=== PATIENT | male | born 1960 | race Caucasian/White ===

== ENCOUNTER → 2017-02-17 | Outpatient (CLI) | payer BC ==
--- NOTE | 2017-02-18 09:02 | CR ---
EXAMINATION: Right elbow HISTORY: Strain COMPARISON: None TECHNIQUE: 3 views FINDINGS/IMPRESSION: No acute osseous abnormality, dislocation, or fracture identified. Mild subchon dral cystic change noted within the medial joint space. There is no joint effusion or soft tissue sw elling. There is a small triceps insertion enthesophyte.
== END ==
LOC: MW.CHFP 11:59
PROVIDERS: ATTEND Student in an Organized Health Care Education/Training Program
DX: S46.211A Strain of muscle, fascia and tendon of other parts of biceps, right arm, initial encounter (principal)
CPT/HCPCS: 73080-26-RT; 73080-RT

== ENCOUNTER → 2017-02-18 | Outpatient (CLI) | payer BC ==
--- NOTE | 2017-02-19 15:43 | MR ---
EXAM DATE: 02/18/17 PATIENT'S AGE: 57 Patient: SABINE DE LA PAZ Facility: [place], [place] Site . Site : [id number] Study: MRI Extremity Right [id number]/[id number] 6:57:11 PM Ordering Physician: Lida Hector Final Report: HISTORY: Strain of muscle, fascia, and tendon. Biceps injury. Technique: MRI right elbow without contrast. Comparison: None. Findings: Tendons: Complete tear of the biceps tendon from the attachment on the radial tuberosity. Tendon is retracted into the distal upper arm, 8.5 cm from the radial tuberosity. Ill-defined fluid surrounding the retracted distal biceps tendon extending across antecubital fossa to the radial tuberosity. Distal brachialis and triceps tendons are intact. Mild common extensor tendinosis. Common flexor tendon is intact. Ligaments: Ulnar collateral ligament is intact. Radial collateral ligament complex is intact. Joint space: Focal full-thickness cartilage defect in the medial capitellum near the trochlea with small subchondral cyst. No other focal cartilage defects. No joint effusion. Bones: No fracture. No marrow replacing process. Nerves: Ulnar nerve is normal in caliber and signal intensity. No ulnar or subluxation. Median and radial nerves are unremarkable. Other: Subcutaneous edema of the medial aspect of the elbow. Impression: 1. Complete tear of the distal biceps tendon from the radial tuberosity. 8.5 cm tendon retraction. 2. Common extensor tendinosis. 3. Focal full-thickness capitellar cartilage defect. Dictated by Denis Oseguera MD @ Feb 19 2017 10:39AM (Electronic Signature) Report Signed by Proxy. [facility]
== END ==
LOC: MW.MRI 16:58
PROVIDERS: ATTEND Student in an Organized Health Care Education/Training Program
DX: S46.211A Strain of muscle, fascia and tendon of other parts of biceps, right arm, initial encounter (principal); M94.8X9 Other specified disorders of cartilage, unspecified sites
CPT/HCPCS: 73221-26-RT; 73221-RT

== ENCOUNTER 2017-02-24 10:34 | Day surgery (SDC) | payer BC ==
[~2017-02-24 10:34] MED LIST: Clindamycin Phosphate in D5W 900 MG in Premix Bag 1 BAG IV SCH; Lactated Ringers 1,000 ML IV SCH; Lidocaine 1% 50 ML MDV ONE; Midazolam 1 MG/ML 2 ML SDV ONE; Ondansetron 4 MG/2 ML SDV ONE; Propofol 200 MG/20 ML SDV ONE; fentaNYL 250 MCG/5 ML SDV ONE
--- NOTE | 2017-02-24 11:18 | PCM.OPNOTE ---
- General Post-Op/Procedure Note Date of Surgery/Procedure: 02/24/17 Operative Procedure(s): R distal biceps tendon repair Post-Op Diagnosis: R distal biceps tendon rupture Anesthesia Technique: General ET tube Primary Surgeon: Winsome Hilton Fur Comber: Aleida Ruffin in mLs: 10 Condition: Good Free Text/Narrative:: tt=0 min #[id number]
--- NOTE | 2017-02-24 11:24 | PCM.PREANE ---
Preanesthetic Assessment - Anesthesia/Transfusion/Family Hx Anesthesia History: Prior Anesthesia Without Reaction Family History of Anesthesia Reaction: No Transfusion History: No Prior Transfusion(s) - Review of Systems General: No Symptoms Pulmonary: No Symptoms Cardiovascular: No Symptoms Gastrointestinal: No symptoms Neurological: No Symptoms Other: Reports: None - Physical Assessment NPO Status Date: 02/23/17 Height: 1.78 m Weight: 99.79 kg ASA Class: 1 Mental Status: Alert & Oriented x3 Airway Class: Mallampati = 2 Dentition: Reports: Normal Dentition Lungs: Clear to auscultation, Normal respiratory effort Cardiovascular: Regular Rate, Regular Rhythm - Allergies Allergies/Adverse Reactions: Allergies Allergy/AdvReac Type Severity Reaction Status Date / Time cephalexin Allergy Rash Verified 02/23/17 10:27 Penicillins Allergy Redness Verified 02/23/17 10:27 - Blood Blood Available: No - Anesthesia Plan Pre-Op Medication Ordered: None - Acknowledgements Anesthesia Type Planned: General Anesthesia Pt an Appropriate Candidate for the Planned Anesthesia: Yes Alternatives and Risks of Anesthesia Discussed w Pt/Guardian: Yes Pt/Guardian Understands and Agrees with Anesthesia Plan: Yes Additional Comments: Receding chin, airway otherwise OK, Plan GE/ETT or LMA PreAnesthesia Questionnaire HEENT History: Reports: None Cardiovascular History: Reports: None Respiratory History: Reports: None Gastrointestinal History: Reports: GERD Genitourinary History: Reports: None Musculoskeletal History: Reports: None Neurological History: Reports: None Psychiatric History: Reports: None Endocrine/Metabolic History: Reports: Obesity/BMI 30+ Hematologic History: Reports: None Immunologic History: Reports: None Oncologic (Cancer) History: Reports: None Dermatologic History: Reports: None - Past Surgical History Head Surgeries/Procedures: Reports: None HEENT Surgical History: Reports: None Cardiovascular Surgical History: Reports: None Respiratory Surgical History: Reports: None GI Surgical History: Reports: None Male Surgical History: Reports: None Endocrine Surgical History: Reports: None Neurological Surgical History: Reports: Discectomy Musculoskeletal Surgical History: Reports: None Oncologic Surgical History: Reports: None Dermatological Surgical History: Reports: None - SUBSTANCE USE Smoking Status *Q: Former Smoker Recreational Drug Use History: No - HOME MEDS Home Medications: Home Meds . [No Known Home Meds] 02/23/17 [History] - CURRENT (IN HOUSE) MEDS Current Meds: Current Medications Clindamycin Phosphate 900 mg/ (Premix) 50 mls @ 100 mls/hr IV ONCALL BRINDA Lactated Ringer's (Ringers, Lactated) 1,000 mls @ 100 mls/hr IV ASDIRECTED BRINDA Discontinued Medications Fentanyl (Sublimaze) Confirm Administered Dose 250 mcg .ROUTE .STK-MED ONE Stop: 02/24/17 09:49 Lidocaine HCl (Xylocaine 1%) Confirm Administered Dose 50 ml .ROUTE .STK-MED ONE Stop: 02/24/17 07:46 Midazolam HCl (Versed 1 Mg/Ml) Confirm Administered Dose 2 mg .ROUTE .STK-MED ONE Stop: 02/24/17 09:49 Ondansetron HCl (Zofran) Confirm Administered Dose 4 mg .ROUTE .STK-MED ONE Stop: 02/24/17 09:49 Propofol (Diprivan 20 Ml) Confirm Administered Dose 200 mg .ROUTE .STK-MED ONE Stop: 02/24/17 09:49
[2017-02-24] MEDS ORDERED: Dexamethasone 4 MG/ML 5 ML MDV ONE (11:50)
[2017-02-24] MEDS ORDERED: Ketorolac 30 MG/ML SDV ONE (11:50)
[2017-02-24] MEDS ORDERED: ePHEDrine 50 MG/ML SDV ONE (12:01)
[2017-02-24] MEDS ORDERED: traMADol 50 MG Tab PO PRN ×2 (14:49→15:06)
--- NOTE | 2017-02-24 14:49 | PCM.POSTAN ---
POST ANESTHESIA ASSESSMENT - RESPIRATORY Respiratory Status: respiratory rate WNL, airway patent, O2 saturation stable - CARDIOVASCULAR CV Status: pulse rate WNL, blood pressure stable - GASTROINTESTINAL GI Status: no symptoms - PAIN Pain Score: 5 - POST OP HYDRATION Hydration Status: adequate & stable
[2017-02-24] MEDS: fentaNYL 100 MCG/2 ML SDV IVPUSH PRN ×2 (15:40→16:30)
--- NOTE | 2017-02-24 15:58 | PCM48HPAN ---
Post Anesthesia Note - EVALUATION WITHIN 48HRS OF ANESTHETIC Vital Signs in Normal Range: Yes Patient Participated in Evaluation: Yes Respiratory Function Stable: Yes Airway Patent: Yes Cardiovascular Function Stable: Yes Hydration Status Stable: Yes Pain Control Satisfactory: Yes Nausea and Vomiting Control Satisfactory: Yes Mental Status Recovered: Yes
--- NOTE | 2017-02-24 16:44 | CR ---
EXAMINATION: Right elbow HISTORY: Surgery COMPARISON: MRI dated 02/18/2017 TECHNIQUE: Single view FINDINGS/IMPRESSION: Operative control films demonstrate an anchor noted at the radial tuberosity.
[2017-02-24] MEDS ORDERED: oxyCODONE 5 MG Tab PO ONE ×2 (17:00→17:15)
[2017-02-24] MEDS ORDERED: HYDROmorphone 1 MG/ML Syringe IM ONE (17:15)
--- NOTE | 2017-02-24 20:05 | OR ---
SURGEON: Winsome Hilton MD DATE OF PROCEDURE: 02/24/2017 PREOPERATIVE DIAGNOSIS: Right distal biceps tendon rupture. POSTOPERATIVE DIAGNOSIS: Right distal biceps tendon rupture. PROCEDURE: Open repair of right distal biceps tendon. LUMBER PRESS OPERATOR: Aleida Ruffin PA-C. ANESTHESIA: General. ESTIMATED BLOOD LOSS: 10 mL. TOURNIQUET TIME: 0 minutes. COMPLICATIONS: None. DVT PROPHYLAXIS: Not indicated. IMPLANTS USED: Arthrex biceps button and an Arthrex 7 mm x 10 mm PEEK tenodesis screw. BRIEF HISTORY: Chong is a 57-year-old, left-hand dominant male, who injured his right upper extremity while trimming a tree. He complained of pain and deformity in the right upper extremity. An MRI did confirm a rupture of the right distal biceps tendon. At that time, I discussed both surgical and conservative treatment options. He elected to proceed with surgical treatment. The risks and goals of procedure were discussed with the patient and were documented preoperatively. He agreed to proceed. DESCRIPTION OF PROCEDURE: The patient was properly identified and brought to the operating room. He was transferred from the OR cart and placed on the operating table in supine position. General anesthesia was administered. After adequate anesthesia was obtained, the right upper extremity was prepped in standard fashion using ChloraPrep solution. It was then sterilely draped. A time-out was performed to ensure correct site and procedure. Preoperative antibiotics were given. The surgical site had been marked preoperatively. An incision was made approximately 3 cm distal to the elbow flexion crease. I did look for the lateral antebrachial cutaneous nerve, however, was not encountered. The subcutaneous tissues were dissected down and the tract of the biceps tendon was identified. I was able to reach up into the upper arm, however, was not able to make contact with the end of the distal biceps tendon. I was able to palpated underneath the skin. I elected to proceed with an additional incision. A small incision was made over the anterior aspect of the upper arm, where the biceps tendon was palpated. The subcutaneous tissues were dissected down and the biceps tendon was readily identified. A long tonsil was then passed safely using my finger as protection through the tunnel. The sutures were placed on the end of the distal biceps tendon and this was pulled back through the biceps tendon tract. The ends of the biceps did not show significant fraying in the tendon, overall quality of the tendon appeared quite good. The end of the tendon was then trimmed to a 7 mm diameter. The distal end of the biceps tendon was then whipstitched approximately 2.5 cm using a fiber loop suture. The tendon was then allowed to retract into the upper arm. I then turned my attention to the forearm. The subcutaneous tissues were dissected down. C-arm imaging did help with identifying the level of the biceps tuberosity. Once this was identified, the soft tissue overlying it was cleared. Care was taken to keep the elbow in full extension with full supination to help identify the biceps tuberosity and help protect the PIN nerve. Once we were able to confirm the biceps tuberosity center, I did drill a 3.2 mm bicortical tunnel through the radial tuberosity. I did ream approximately 30 degrees ulnar to again help protect the PIN nerve. Fluoroscopy was used to confirm drill placement. I then drilled an 8 mm unicortical tunnel over the 3.2 mm guide pin. Both the pin and reamer were then removed. The wound was copiously irrigated with saline solution to remove the bone dust and fragments. The end of the suture which was through the biceps tendon was then threaded through the biceps button. Attention was then placed on the suture limbs and the tip of the biceps button was inserted into the previously made hole. Tension was maintained on the sutures and the forearm was flexed approximately 30 degrees. The biceps button did deploy on the outer cortex and the biceps tendon was able to easily be docked into the previously made hole. Once the tendon was fully seated, a free needle was used to pass one limb through the tendon and a knot was tied. The tenodesis screw was then placed on the salesperson driver and one suture limb was threaded through the salesperson driver. Tension was again maintained on the graft as the tenodesis screw was inserted. The screw was inserted on the radial aspect of the bone tunnel which pushed the tendon in a more ulnar trajectory. This screw was seated flush with the anterior cortex. The suture limbs were then tied over the screw to complete the repair. The patient was then taken through a full range of motion. I am able to get him to nearly full extension with full pronation and supination. He did have full flexion as well. The wound was then copiously irrigated with saline solution. The subcutaneous tissues were closed with 2-0 Vicryl and the skin was closed with a running 4-0 Monocryl suture. Steri-Strips and Benzoin were placed. Xeroform gauze was placed over the wound and a bulky dressing was applied. He was placed in a well-padded posterior splint with a lateral stabilizing slab. He was awakened from his anesthetic and transferred back to the operating room cart. He was brought to recovery room in stable condition. All needle and sponge counts were correct. MARYELLEN / VARGAS /[id number]
[2017-02-24 22:53] VITALS: BP 148/72
== END 2017-02-24 20:00 | disposition home or self-care (01) ==
LOC: MW.SDS 10:34 → MW.MS 17:41 → MW.SDS 20:00
PROVIDERS: ATTEND Orthopaedic Surgery
DX: S46.211A Strain of muscle, fascia and tendon of other parts of biceps, right arm, initial encounter (principal); Z98.890 Other specified postprocedural states; Z88.1 Allergy status to other antibiotic agents; Z87.891 Personal history of nicotine dependence; W01.0XXA Fall on same level from slipping, tripping and stumbling without subsequent striking against object, initial encounter; Y93.H2 Activity, gardening and landscaping; Y92.89 Other specified places as the place of occurrence of the external cause
CPT/HCPCS: 24340; 76000; A9270; C1776; J1100; J1170; J1885; J2250; J2405; J3010; J7120; 01716; J2704

== ENCOUNTER 2019-11-23 13:58 | Emergency (ER) | payer BC ==
[2019-11-23 14:54] LABS: BLOOD UREA NITROGEN,BUN 19 mg/dL (7.0-18.0); CARBON DIOXIDE,CO2 27.6 mmol/L (21.0-32.0); CHLORIDE,CL 105 mmol/L (98-107); GLUCOSE RANDOM 122 mg/dL (74-106); POTASSIUM,K 3.8 mmol/L (3.5-5.1); SODIUM,NA 142 mmol/L (136-148)
--- NOTE | 2019-11-23 14:54 | CR ---
Chest: Portable view of the chest was obtained. Comparison: No prior chest imaging. Heart size and mediastinum are normal. Lungs are clear with no acute parenchymal change. Bony structures are grossly intact. Impression: 1. Nothing acute is appreciated on portable chest x-ray. Diagnostic code #1 This report was dictated in [place] Standard Time
--- NOTE | 2019-11-23 15:49 | EDM.PDOC ---
ED [facility] GENERAL MEDICAL PROBLEM - General Chief Complaint: Syncope Stated Complaint: AMB Time Seen by Provider: 11/23/19 15:48 Source of Information: Reports: Patient History Limitations: Reports: No Limitations - History of Present Illness INITIAL COMMENTS - FREE TEXT/NARRATIVE: Patient is a 59-year-old male with a past medical history hypertension presenting with chief complaint of syncopal episode. Patient states he has been sick over the past couple days with flulike symptoms such as coughing, fevers, diffuse body aches. Patient states that he felt lightheaded earlier today was in a chair and passed out. Patient denies any chest pain, shortness of breath, palpitations prior to the episode. Patient denies falling out of the chair did not hit his head. Patient denies headache. Patient states he woke up rather quickly and was not confused at all when he woke up. Patient denies bladder and bowel incontinence. Patient does report prior syncopal episodes many years ago Pmhx: Hypertension Pshx: None Family Hx: noncontributory Smoking history? no Etoh use? none Drug use? none In addition to that documented in the HPI above, the additional ROS was obtained : Constitutional: Per HPI Eyes: Denies vision changes ENMT: Denies sore throat CV: Denies chest pain Resp: Denies SOB GI: Denies vomiting or diarrhea : Denies painful urination MSK: Denies recent trauma Skin: Denies new rashes Neuro: Denies new numbness or tingling or weakness Endocrine: Denies unexpected weight loss Heme: Denies bleeding disorders I have reviewed the triage vital signs Const: Well nourished, well developed, appears stated age. Appears well nontoxic Eyes: PERRL, no conjunctival injection HENT: NCAT, Neck supple without meningismus CV: RRR, Warm, well-perfused extremities RESP: CTAB, Unlabored respiratory effort GI: soft, non-tender, non-distended, no masses MSK: No gross deformities appreciated Skin: Warm, dry. No rashes Neuro: Alert, assistant manager bilingual II-XII grossly intact. Sensation and motor function of extremities grossly intact. Psych: Appropriate mood and affect Assessment and plan: Patient is a 59-year-old male presenting with syncopal episode. Patient's EKG demonstrates normal sinus rhythm without ischemic changes or arrhythmias. Patient's history and exam along with lab studies which are negative demonstrate no high risk features other than age. Patient observed in the emergency room about 2 hours on the security monitor without any changes in status. This symptoms could be due to vasovagal and/or dehydration given the patient's flulike illness. Patient given strict return precautions. All questions addressed and answered. Patient agrees with plan. - Related Data Allergies Allergy/AdvReac Type Severity Reaction Status Date / Time cephalexin Allergy Rash Verified 11/23/19 14:06 Penicillins Allergy Redness Verified 11/23/19 14:06 Home Meds: Home Meds . [No Known Home Meds] 11/23/19 [History] Past Medical History HEENT History: Reports: None Cardiovascular History: Reports: None Respiratory History: Reports: None Gastrointestinal History: Reports: GERD Genitourinary History: Reports: None Musculoskeletal History: Reports: None Neurological History: Reports: None Psychiatric History: Reports: None Endocrine/Metabolic History: Reports: Obesity/BMI 30+ Hematologic History: Reports: None Immunologic History: Reports: None Oncologic (Cancer) History: Reports: None Dermatologic History: Reports: None - Infectious Disease History Infectious Disease History: Reports: None - Past Surgical History Head Surgeries/Procedures: Reports: None HEENT Surgical History: Reports: None Cardiovascular Surgical History: Reports: None Respiratory Surgical History: Reports: None GI Surgical History: Reports: None Male Surgical History: Reports: None Endocrine Surgical History: Reports: None Neurological Surgical History: Reports: Discectomy Musculoskeletal Surgical History: Reports: None Oncologic Surgical History: Reports: None Dermatological Surgical History: Reports: None Social & Family History - Family History Family Medical History: Noncontributory - Tobacco Use Smoking Status *Q: Former Smoker Used Tobacco, but Quit: Yes Month/Year Tobacco Last Used: 15 years - Caffeine Use Caffeine Use: Reports: Coffee - Recreational Drug Use Recreational Drug Use: No ED ROS GENERAL - Review of Systems Review Of Systems: See Below ED EXAM, GENERAL - Physical Exam Exam: See Below Course - Vital Signs Last Recorded V/S: Last Vital Signs Temp 37.1 C 11/23/19 14:01 Pulse 63 11/23/19 14:01 Resp 18 11/23/19 14:01 BP 133/83 11/23/19 14:01 Pulse Ox 98 11/23/19 14:01 - Orders/Labs/Meds Orders: Active Orders 24 hr Category Date Time Status EKG 12 Lead [EKG Documentation Completion] [RC] ROUTINE Care 11/23/19 14:07 Active Labs: Laboratory Tests 11/23/19 11/23/19 Range/Units 14:15 14:15 WBC 4.83 (4.0-11.0) K/uL RBC 5.00 (4.50-5.90) M/uL Hgb 15.3 (13.0-17.0) g/dL Hct 45.0 (38.0-50.0) % MCV 90.0 (80.0-98.0) fL MCH 30.6 (27.0-32.0) pg MCHC 34.0 (31.0-37.0) g/dL RDW Std Deviation 41.1 (28.0-62.0) fl RDW Coeff of Arlet 13 (11.0-15.0) % Plt Count 197 (150-400) K/uL MPV 10.60 (7.40-12.00) fL Add Manual Diff YES Neutrophils % (Manual) 40 L (48.0-80.0) % Band Neutrophils % 1 % Lymphocytes % (Manual) 37 (16.0-40.0) % Monocytes % (Manual) 22 H (0.0-15.0) % Nucleated RBC % 0.0 /100WBC Absolute Seg Neuts 1.9 (1.4-5.7) Band Neutrophils # 0 Lymphocytes # (Manual) 1.8 (0.6-2.4) Monocytes # (Manual) 1.1 H (0.0-0.8) Nucleated RBCs # 0 K/uL Sodium 142 (136-148) mmol/L Potassium 3.8 (3.5-5.1) mmol/L Chloride 105 (98-107) mmol/L Carbon Dioxide 27.6 (21.0-32.0) mmol/L BUN 19 H (7.0-18.0) mg/dL Creatinine 1.1 (0.8-1.3) mg/dL Est Cr Clr Drug Dosing 74.66 mL/min Estimated GFR (MDRD) > 60.0 ml/min Glucose 122 H (74-106) mg/dL Calcium 8.2 L (8.5-10.1) mg/dL Total Bilirubin 0.3 (0.2-1.0) mg/dL AST 32 (15-37) IU/L ALT 55 (14-63) IU/L Alkaline Phosphatase 76 (46-116) U/L Troponin I < 0.050 (0.000-0.056) ng/mL Total Protein 7.1 (6.4-8.2) g/dL Albumin 3.5 (3.4-5.0) g/dL Globulin 3.6 (2.6-4.0) g/dL Albumin/Globulin Ratio 1.0 (0.9-1.6) Departure - Departure Time of Disposition: 15:49 Disposition: Home, Self-Care 01 Clinical Impression: Syncope Instructions: Syncope Referrals: PCP,None [Primary Care Provider] - Forms: ED Department Discharge Additional Instructions: The following information is given to patients seen in the emergency department who are being discharged to home. This information is to outline your options for follow-up care. We provide all patients seen in our emergency department with a follow-up referral. The need for follow-up, as well as the timing and circumstances, are variable depending upon the specifics of your emergency department visit. If you don't have a primary care physician on staff, we will provide you with a referral. We always advise you to contact your personal physician following an emergency department visit to inform them of the circumstance of the visit and for follow-up with them and/or the need for any referrals to a consulting specialist. The emergency department will also refer you to a specialist when appropriate. This referral assures that you have the opportunity for follow-up care with a specialist. All of these measure are taken in an effort to provide you with optimal care, which includes your follow-up. Under all circumstances we always encourage you to contact your private physician who remains a resource for coordinating your care. When calling for follow-up care, please make the office aware that this follow-up is from your recent emergency room visit. If for any reason you are refused follow-up, please contact the [facility] Emergency Department at and asked to speak to the emergency department charge nurse. Sepsis Event Note - Evaluation Sepsis Screening Result: No Definite Risk - Focused Exam Vital Signs: Vital Signs Temp Pulse Resp BP Pulse Ox 11/23/19 14:01 37.1 C 63 18 133/83 98 Date Exam was Performed: 11/23/19 Time Exam was Performed: 15:52 - My Orders Last 24 Hours: My Active Orders 11/23/19 14:07 EKG 12 Lead [EKG Documentation Completion] [RC] ROUTINE - Assessment/Plan Last 24 Hours: My Active Orders 11/23/19 14:07 EKG 12 Lead [EKG Documentation Completion] [RC] ROUTINE
[2019-11-23 19:35] VITALS: BP 120/75; PULSE 71
== END 2019-11-23 16:05 | disposition home or self-care (01) ==
LOC: MW.ED 13:58
DX: R55 Syncope and collapse (principal); I10 Essential (primary) hypertension; E66.9 Obesity, unspecified; Z68.32 Body mass index [BMI] 32.0-32.9, adult; Z88.0 Allergy status to penicillin; Z88.1 Allergy status to other antibiotic agents; Z87.891 Personal history of nicotine dependence
CPT/HCPCS: 36415; 71045; 71045-26; 80053; 84484; 85025; 93005; 99284; 99285-25